=== PATIENT | female | born 1960 | race Caucasian/White ===

== ENCOUNTER 2023-05-02 15:40 | Emergency (ER) | payer BC, SELFPAY ==
--- NOTE | ~2023-05-02 | XR_ITS ---
EXAMINATION: XR ankle LT min 3V DATE: 05/02/2023 16:07 INDICATION: Left ankle injury. TECHNIQUE: 4 views of left ankle were obtained. COMPARISON: Left ankle radiographs 07/30/2013 FINDINGS: Bone alignment is normal. There is chronic heterotopic ossification distal to medial malleo mainor. No acute fracture. There is mild midfoot osteoarthritis. There are enthesophytes at the posterio r and plantar aspects of calcaneal tuberosity. Ankle soft tissue swelling is noted. IMPRESSION: 1. No acute fracture. Reviewed, dictated and finalized at location A. IMPRESSION: 1. No acute fracture.
[2023-05-02 15:53] VITALS: BP 139/74; PULSE 88; RESP 16; TEMP 36.7; O2SAT 99
--- NOTE | 2023-05-02 16:06 | ED.LOWEXIN ---
HPI - Extremity Injury (Lower) General Chief Complaint: Extremity Injury, Lower Stated Complaint: LEFT ANKLE/FOOT INJURY Source: patient and RN notes reviewed History of Present Illness HPI Narrative: 62 yo F Presents to urgent care with complaints of left ankle pain and swelling. 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 Pt states she was reading a box when she fell backwards, getting her left foot caught under the bar. Pt states she plantar hyperflexed her ankle. Pt denies any numbness or tingling. Denies any head injury or LOC. Denies any chest pain, SOB, or dizziness. Related Data Allergies Allergy/AdvReac Type Severity Reaction Status Date / Time Sulfa (Sulfonamide Allergy Severe Hives Verified 05/02/23 15:59 Antibiotics) amoxicillin Allergy Intermediate Rash Verified 05/02/23 15:59 Review of Systems Review of Systems: CONSTITUTIONAL: Denies fever, chills, or sweats. EYES: Denies visual changes, redness, or discharge. ENT: Denies otalgia and sore throat CARDIOVASCULAR: Denies chest pain, palpitations, or edema. RESPIRATORY: Denies cough or dyspnea. GASTROINTESTINAL: Denies abdominal pain, nausea, vomiting, or diarrhea. GENITOURINARY: Denies dysuria or hematuria. SKIN: Denies rash or itching. MUSCULOSKELETAL: Left ankle pain NEUROLOGIC: Denies headache, numbness, or weakness. Pertinent positives per HPI. [facility] Past Medical History Medical History (Updated 05/02/23 @ 16:31 by Maria Del Rosario Reese, THERMOSTAT MACHINE TENDER) section wound complication Comments At the time of my signature, I reviewed and agree with the nursing past medical, surgical, social, and family history. There is no relevant family history pertinent to the patient complaint. Exam Narrative: GENERAL: This is a well-nourished, well-developed patient, in no apparent distress. HEAD: normocephalic, atraumatic. EYES: Sclera clear/white. Vision is grossly intact. EARS: External ears normal, auditory canals clear and without drainage. Hearing grossly intact. NOSE: External nose normal with no obvious nasal discharge, nares without redness, no rhinorrhea. THROAT: Mucous membranes moist, posterior pharynx clear. NECK: Neck supple, non-tender without lymphadenopathy, masses or thyromegaly. CARDIOVASCULAR: Regular rate RESPIRATORY: No respiratory distress SKIN: warm, intact with no suspicious lesions or rash, good texture and turgor. NEURO: awake, alert, and oriented to person, place and time. There were no obvious focal neurologic abnormalities. EXTREMITIES: Left lateral ankle swelling and tenderness along with anterior ankle tenderness. Pt able to flex and extend affected ankle moderately. BACK: Nontender without deformity or crepitus. No flank tenderness. Course Course Level of Care: Express Care Visit Vital Signs Vital signs: Vital Signs Temperature 98.1 F 05/02/23 15:53 Pulse Rate 88 05/02/23 15:53 Respiratory Rate 16 05/02/23 15:53 Blood Pressure 139/74 05/02/23 15:53 Pulse Oximetry 99 05/02/23 15:53 Oxygen Delivery Room Air 05/02/23 15:53 Temperature 98.1 F 05/02/23 15:53 Pulse Rate 88 05/02/23 15:53 Respiratory Rate 16 05/02/23 15:53 Blood Pressure 139/74 05/02/23 15:53 Pulse Oximetry 99 05/02/23 15:53 Oxygen Delivery Room Air 05/02/23 15:53 Reviewed MDM - Extremity Injury (Lower) MDM Narrative Medical decision making narrative: Use the RICE method at home. May take ibuprofen and/or Tylenol if needed. If symptoms persist in 1 week after conservative treatment, follow-up with specialist. Differential Diagnosis Differential diagnosis: Likely ankle sprain and strain, ankle fracture and other (ankle dislocation) Imaging Data Radiologist's impression: [facility] [address] [place] [address] XRay Report Signed Patient: Sparkle KUMAR : 1960 MR#: [id number] Age/Sex: 62 / F
[2023-05-02] MEDS: ACETAMINOPHEN 500 MG TABLET 1000 MG PO (16:45)
== END 2023-05-02 16:40 | disposition home or self-care (01) ==
PROVIDERS: Emergency Provider Nurse Practitioner Family; PCP Family Medicine Adolescent Medicine
DX: S93.402A Sprain of unspecified ligament of left ankle, initial encounter (principal); W19.XXXA Unspecified fall, initial encounter; K21.9 Gastro-esophageal reflux disease without esophagitis
CPT/HCPCS: 73610; 99213; A9270; G0463

== ENCOUNTER 2025-08-31 11:03 | Outpatient (CLI) | payer MEDICARE, SELFPAY ==
--- NOTE | ~2025-08-31 | XR_ITS ---
EXAMINATION: XR knee RT 3V, 08/31/2025 11:08 CDT HISTORY: MEDIAL RT KNEE PAIN x3 WKS COMPARISON: No comparisons available. Findings: No acute fracture or malalignment. Moderate degenerative changes Soft tissues unremarkable. Impression: No acute fracture or malalignment. Reviewed, dictated and finalized at location P. Impression: No acute fracture or malalignment.
== END 2025-08-31 11:04 | disposition home or self-care (01) ==
LOC: MICIMG 11:04
PROVIDERS: PCP Nurse Practitioner; Visit Provider Nurse Practitioner
DX: M17.11 Unilateral primary osteoarthritis, right knee (principal)
CPT/HCPCS: 73562

== ENCOUNTER 2025-11-15 14:30 | Outpatient (RCR) | payer MEDICARE, SELFPAY ==
--- NOTE | 2025-09-07 13:36 | OPREHPOC ---
Outpatient Therapy Plan of Care This is a Multidisciplinary Plan of Care that may contain components documented by all disciplines (PT, OT, and ST.) PT Problem 1 PT Problem #1 Knowledge Deficit PT Goal 1 Goal / Goal Update *independent with HEP Target Visit 6 PT Problem 2 PT Problem #2 Pain PT Goal 1 Goal / Goal Update 1* pt report pain rating at worst of 3/10 2* pt report standing/walking tolerance 0f 20 minutes Target Visit 6 PT Problem 3 PT Problem #3 Impaired Range of Motion PT Goal 1 Goal / Goal Update increase R knee flexion ROM to 125' and without pain, to improve mobility Target Visit 6 PT Problem 4 PT Problem #4 Impaired Functional Mobility PT Goal 1 Goal / Goal Update 1* 2 minute walking test distance of 300' 2* pt up/down 12 steps with use of 1 hand railing and alternate step pattern 3* 5 reps sit/stand time of 18 seconds, without use of UE's Target Visit 6
--- NOTE | 2025-09-07 13:37 | PTOPEVAL1 ---
Assessment and note entered by Billie Kingston, PT Evaluation Information Assessment Status Evaluation ICD-10 Condition Codes (PT) Pain in right knee M25.561 Onset Jul 2025 Subjective Information was working and cleaning out the house, lifting and doing a lot, then few days later, was sitting and when went to stand up- R knee must have popped, snapped or something happened and pain started immediately; did not swell; could not walk on my leg; put ice on it and rested; did not get better and went to dr; completed steroid pack, did not help the pain problems walking, on stairs- do one step at a time or sit on her butt. 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 Sudden onset of pain with standing up and turning to walk . Steroids did not help her pain. LE functional scale rating of 84% limitation in activity. She is usually active, but not doing much due to knee pain, but resting. Xray report states Moderate degenerative changes of knee. With the evaluation: decrease tolerance with weight bearing in standing, walking tolerance of 150' then had to sit down due to pain; 5 reps sit /stand transfer in 24 seconds with most of wt on L LE; knee ROM 0-120'- both motions increase pain with flexion more painful; R hip and ankle ranges WNL; tenderness over medial knee. Skilled PT services are indicated for modalities to decrease pain; therapeutic exercises to increase ROM and strength to R knee with education for HEP, gait training and body mechanics. Plan of Care Interventions Electrical Stimulation,Hot Pack/Cold Pack,Manual Therapy,Neuro Re-education,Patient/Caregiver Education,Therapeutic Activities,Therapeutic Exercise,Ultrasound,Other Other Interventions taping PT Services Indicated Yes Treatment Frequency and 1-2x/wk for 6 visits Duration These treatments will address the objective and functional deficits as defined above. The patient will be advanced safely and appropriately in order for the patient to progress towards his/her prior level of function. Additional exercises will be introduced and as well as a comprehensive home exercise program upon discharge, if needed, ?to ensure carryover of functional gains achieved in the clinic. This treatment plan has been reviewed and agreement upon by the patient.
--- NOTE | 2025-09-28 14:08 | OPREHPOC ---
Outpatient Therapy Plan of Care This is a Multidisciplinary Plan of Care that may contain components documented by all disciplines (PT, OT, and ST.) PT Problem 1 PT Problem #1 Knowledge Deficit PT Goal 1 Goal / Goal Update *independent with HEP 09-28-25 progress goal met continue to progress HEP and education Target Visit 12 PT Problem 2 PT Problem #2 Pain PT Goal 1 Goal / Goal Update 1* pt report pain rating at worst of 3/10 2* pt report standing/walking tolerance 0f 20 minutes 09-28-25 progress goal 2 met continue toward #1 Target Visit 12 PT Problem 3 PT Problem #3 Impaired Range of Motion PT Goal 1 Goal / Goal Update increase R knee flexion ROM to 125' and without pain, to improve mobility 09-28-25 progress goal partially met-- achieved ROM but pain increase continue towards goal Target Visit 12 PT Problem 4 PT Problem #4 Impaired Functional Mobility PT Goal 1 Goal / Goal Update 1* 2 minute walking test distance of 300' 2* pt up/down 12 steps with use of 1 hand railing and alternate step pattern 3* 5 reps sit/stand time of 18 seconds, without use of UE's 09-28-25 progress goals 1,3 met & #2 partially met for ascending stairs Target Visit 6 Progress Partially Met PT Goal 2 Goal / Goal Update 09-28-25 progress NEW goals: 1* 2 minute walking test distance of 450' 2* descending 8 stairs with alternate step pattern and 1 hand railing Target Visit 12
--- NOTE | 2025-09-28 14:09 | PTOPPROG ---
Assessment and note entered by Billie Kingston, PT Assessment Status Progress ICD-10 Condition Codes (PT) Pain in right knee M25.561 Onset Jul 2025 Subjective Information knee is getting better, but some days it hurts really bad; walking and pressure on it makes it hurt; been doing the exercises, feel like I am walking better; Assessment PT Clinical Summary Sparkle has received 6 PT sessions. Today's assessment compared to the initial evaluation: pain rating from 3-6/10 to 3-8/10; self assessment with LE functional scale from 84 to 71% limitation in activity level; 5 reps sit/ stand without use of UE from 24 to 14 seconds; 2 minute walking test distance from 150' to 375'; on stairs requires one hand railing with ascending use of alternate step pattern and descending single step pattern; increase R knee flexion to 130' with pain increase at end range of motion; gait with decreased wt shift onto R LE, does not use assistive device; education for HEP and pain control. The goals were partially met. Continue PT treatment. Plan of Care Interventions Electrical Stimulation,Hot Pack/Cold Pack,Manual Therapy,Neuro Re-education,Patient/Caregiver Education,Therapeutic Activities,Therapeutic Exercise,Ultrasound,Other Other Interventions taping PT Services Indicated Yes Treatment Frequency and 1x/wk for 6 visits Duration These treatments will address the objective and functional deficits as defined above. The patient will be advanced safely and appropriately in order for the patient to progress towards his/her prior level of function. Additional exercises will be introduced and as well as a comprehensive home exercise program upon discharge, if needed, ?to ensure carryover of functional gains achieved in the clinic. This treatment plan has been reviewed and agreement upon by the patient.
--- NOTE | 2025-11-15 15:24 | OPREHPOC ---
Outpatient Therapy Plan of Care This is a Multidisciplinary Plan of Care that may contain components documented by all disciplines (PT, OT, and ST.) PT Problem 1 PT Problem #1 Knowledge Deficit PT Goal 1 Goal / Goal Update *independent with HEP 09-28-25 progress goal met continue to progress HEP and education 11-15-25 d/c goal met Target Visit 12 Progress Met PT Problem 2 PT Problem #2 Pain PT Goal 1 Goal / Goal Update 1* pt report pain rating at worst of 01/31 2* pt report standing/walking tolerance 0f 20 minutes 09-28-25 progress goal 2 met continue toward #1 11-15-25 d/c goals not met; #1 is /; #2 is 15 minutes Target Visit 12 Progress Not Met PT Problem 3 PT Problem #3 Impaired Range of Motion PT Goal 1 Goal / Goal Update increase R knee flexion ROM to 125' and without pain, to improve mobility 09-28-25 progress goal partially met-- achieved ROM but pain increase continue towards goal 11-15-25 d/c goal met for 0-130 ROM but pain increase with both motions Target Visit 12 Progress Partially Met PT Problem 4 PT Problem #4 Impaired Functional Mobility PT Goal 1 Goal / Goal Update 1* 2 minute walking test distance of 300' 2* pt up/down 12 steps with use of 1 hand railing and alternate step pattern 3* 5 reps sit/stand time of 18 seconds, without use of UE's 09-28-25 progress goals 1,3 met & #2 partially met for ascending stairs Target Visit 6 Progress Partially Met PT Goal 2 Goal / Goal Update 09-28-25 progress NEW goals: 1* 2 minute walking test distance of 450' 2* descending 8 stairs with alternate step pattern and 1 hand railing 11-15-25 d/c goals not met; #1 is 225'; #2 is with single step pattern Target Visit 12 Progress Not Met
--- NOTE | 2025-11-15 15:24 | PTOPDC ---
Assessment and note entered by Billie Kingston, PT Assessment Status Discharge ICD-10 Condition Codes (PT) Pain in right knee M25.561 Onset Jul 2025 Subjective Information going to see [address] Dec 01 and begin of Dec, to get 2 consults; been doing the exercises; use the cane when I go out, and around the home sometimes use it; want to continue on with therapy until Dec and I see the second ortho dr. Reported Pain Level Pain Score 5: Self Report Additional Pain Score Comments range in the past week: 2-8/10; knee hurts, aches -- anterior and inferior patella and behind knee; tender to touch; increase pain: standing/walking 15 minutes at the most decrease pain: sit, rest, ice, elevation, muscle cream, tubigrip for support still have some swelling in knee, but it is less, usually swells over medial aspect of knee Assessment PT Clinical Summary Sparkle has received 12 PT sessions. She has had a recent MRI of her knee, with reports of changes and is going to have an ortho consult in November and second ortho in Dec.. With today's assessment compared to the last assessment: pain rating is the same at 3-8/10; self assessment with LE functional scale rating is the same at 71% limitation in activity level; reported tolerance with standing/walking from 30 minutes to 15 minutes at most; increase strength of R hip and knee, with the mat exercises, is now able to do 15 reps, with increase pain reported; and is not able to tolerate R single leg standing due to pain; active knee ROM is the same at 0-130 ', with pain reported at end ranges of both flexion and extension; 2 minute walking test distance from 375' without device to 225' with cane; on stairs requires one hand railing and single step pattern; education completed for HEP and is using Tubigrip for support and swelling over knee. The goals were not achieved, except education for HEP and gait training with cane. Discharge PT services. She is to continue with the HEP and pain management, and going to have an ortho consult for the MRI changes of her knee. Sparkle voiced concern and wants to continue with PT until December. Discussed with her that she is at a holding point, in that she cannot do more activity due to pain. She has a good understanding of her HEP, and to continue with her knee ROM and strength. Plan of Care PT Services Indicated No
== END 2025-11-15 16:00 | disposition home or self-care (01) ==
LOC: ANHPT 14:30
PROVIDERS: PCP Family Medicine Adolescent Medicine; Visit Provider Family Medicine
DX: M25.561 Pain in right knee (principal)
CPT/HCPCS: 97035; 97110; 97116; 97140; 97161; 97530